=== PATIENT | female | born 1935 | race Caucasian/White ===

== ENCOUNTER 2018-04-26 14:55 | Emergency (ER) | payer MEDICARE, OTHER, SELFPAY ==
[2018-04-26 15:06] VITALS: BP 153/79; PULSE 90; RESP 20; TEMP 36.8; O2SAT 96; BMI 28.3
[2018-04-26 17:59] VITALS: BP 166/66; PULSE 73; RESP 18; O2SAT 98
[2018-04-26 18:10] VITALS: BP 124/67; PULSE 71; RESP 12; O2SAT 98
--- NOTE | 2018-04-26 18:37 | DI.RAD.S_ITS ---
PROCEDURE: XR LUMBAR SPINE 2-3V INDICATIONS: fall, back pain, Recent L1 compression TECHNIQUE: 3 views of the lumbar spine were acquired. COMPARISON: [facility], , L-SPINE 2-3 VIEWS, 10/14/2017, 14:52. FINDINGS: Bones: T12 compression fracture is again noted, with slight loss of height since 10/14/17. The remaining vertebral body heights appear preserved. Grade 1 anterolisthesis of L4 on L5. There is lower lumbar moderate disc degeneration at L4-L5 and L5-S1. There is lower lumbar spine diffuse facet arthropathy. Mild levocurvature centered at the L4 level. Partial left-sided sacralization of L5 and chronic pseudoarthrosis Soft tissues: Overlying bowel gas pattern is normal. No suspicious soft tissue calcifications. Scattered vascular calcifications present in the aorta IMPRESSION: Mild/moderate T12 compression fracture with slight loss of height since 10/14/17 however no more recent comparison studies. Therefore please correlate clinically. Dictated by: Alen Elizabeth M.D. on 04/26/2018 at 19:22 Approved by: Alen Elizabeth M.D. on 04/26/2018 at 19:24
--- NOTE | 2018-04-26 18:37 | DI.RAD.S_ITS ---
PROCEDURE: XR PELVIS 1-2V INDICATIONS: fall, Right lower back pain/sacral TECHNIQUE: Single view(s) of the pelvis acquired. COMPARISON: None. FINDINGS: Bones: No fractures or dislocations. No suspicious bony lesions. Lower lumbar spine degeneration. Mild bilateral hip joint degeneration. Soft tissues: Visualized bowel gas pattern is normal. No suspicious soft tissue calcifications. IMPRESSION: No fracture Dictated by: Alen Elizabeth M.D. on 04/26/2018 at 19:21 Approved by: Alen Elizabeth M.D. on 04/26/2018 at 19:22
[2018-04-26 19:56] VITALS: BP 130/74; PULSE 72; RESP 18; O2SAT 97
--- NOTE | 2018-04-27 03:24 | ED_ITS ---
HPI - Fall General Chief Complaint: Fall Stated Complaint: BACK PAIN FROM FALL LAST NIGHT Time Seen by Provider: 04/26/18 18:13 Source: patient and family Mode of arrival: ambulatory Limitations: no limitations History of Present Illness HPI Narrative: 82-year-old female presents with her daughter with a chief complaint of right buttock pain after mechanical fall yesterday in which she tripped and fell down. She and daughter a particular concern given x-ray results after a recent fall in which she suffered an L1 compression fracture. She denies any midline pain. She denies any head or neck pain. She denies any numbness, tingling or weakness. She has no trouble controlling bowel or bladder MD complaint: fall Onset (ago): minute(s) Fall from: standing Fall witnessed: no Place fall occurred: home Loss of consciousness: none Context: tripped/slipped Location of injury: back Related Data Home Medications Medication Instructions Recorded Confirmed CALCIUM CARBONATE (TUMS ) 500 mg PO PRN #0 07/01/12 aspirin 81 mg PO QDAY #0 11/21/17 Previous Rx's Medication Instructions Recorded donepezil 5 mg PO HS #90 tab 01/04/18 levothyroxine [Synthroid] 75 mcg PO QAM #90 tab 01/04/18 simvastatin 40 mg PO HS #90 tab 01/04/18 venlafaxine [Effexor XR] 150 mg PO QDAY #90 cap 01/04/18 Allergies Allergy/AdvReac Type Severity Reaction Status Date / Time pneumococcal vaccine Allergy Mild CELLULITIS Verified 04/26/18 15:13 Review of Systems Review of Systems All systems reviewed & are unremarkable except as noted in HPI and below Constitutional Denies chills, Denies fever(s), Denies lethargy and Denies weakness Eyes Denies change in vision, Denies eye discharge, Denies irritation and Denies loss of vision ENT Ears, Nose, Mouth, and Throat: Denies change in voice, Denies neck pain and Denies sore throat Cardiovascular Denies chest pain, Denies irregular heart rhythm, Denies lightheadedness, Denies palpitations, Denies dyspnea, Denies dyspnea on exertion and Denies orthopnea Respiratory Denies cough, Denies dyspnea, Denies dyspnea on exertion and Denies wheezing Gastrointestinal Gastrointestinal: Denies abdominal pain, Denies change in bowel habits, Denies diarrhea, Denies nausea and Denies vomiting Genitourinary Denies hematuria, Denies flank pain, Denies urinary incontinence and Denies urinary urgency Musculoskeletal Reports back pain, Reports limited range of motion and Denies neck pain Integumentary/Breasts Denies pruritus, Denies erythema, Denies rash and Denies wounds Neurologic Denies confusion, Denies loss of vision and Denies weakness Psychiatric Denies anxiety, Denies confusion, Denies depression, Denies homicidal ideation and Denies suicidal ideation Endocrine Denies palpitations Hematologic/Lymphatic Denies easy bruising Allergic/Immunologic Denies wheezing Exam Narrative Exam Narrative: GENERAL: pleasant 82-year-old female in mild distress. HEAD: Atraumatic. Normocephalic. No temporal or scalp tenderness. EYES: Pupils equal round and reactive. Extraocular motions intact. No scleral icterus. No injection or drainage. ENT: Nose without bleeding, purulent drainage or septal hematoma. Throat without erythema, tonsillar hypertrophy or exudate. Uvula midline. Airway patent. NECK: Trachea midline. No JVD or lymphadenopathy. Supple, nontender, no meningeal signs. CARDIOVASCULAR: Regular rate and rhythm without murmurs, gallops, or rubs. RESPIRATORY: Clear to auscultation. Breath sounds equal bilaterally. No wheezes , rales, or rhonchi. GASTROINTESTINAL: Abdomen soft, non-tender, nondistended. No hepato-splenomegaly , or palpable masses. No guarding. EXTREMITIES: No clubbing, cyanosis, or edema. No joint tenderness, effusion, or edema noted. BACK: mild tenderness in her right lumbar region and buttock. No midline tenderness NEURO: AOx3. SKIN: No rash or erythema. Initial Vital Signs Initial Vital Signs: Vital Signs Temperature 98.2 F 04/26/18 15:06 Pulse Rate 90 04/26/18 15:06 Respiratory Rate 20 04/26/18 15:06 Blood Pressure 153/79 H 04/26/18 15:06 Pulse Oximetry 96 04/26/18 15:06 [facility] Family History Sister Lung cancer, Onset Age: 85 Course Orders Ordered: ED Orders 04/26/18 18:37 XR lumbar spine 2-3V Stat XR pelvis 1-2V Stat Vital Signs - 8 hr 04/26/18 19:56 Pulse Rate 72 Respiratory Rate 18 Blood Pressure 130/74 H Pulse Oximetry 97 MDM - Fall Medical Records Attestation: I reviewed the patient's medical records. Imaging Data Lumbar Xray: Radiologist's impression: PROCEDURE: XR LUMBAR SPINE 2-3V INDICATIONS: fall, back pain, Recent L1 compression TECHNIQUE: 3 views of the lumbar spine were acquired. COMPARISON: [facility], , L-SPINE 2-3 VIEWS, 10/14/2017, 14:52. FINDINGS: Bones: T12 compression fracture is again noted, with slight loss of height since 10/14/17. The remaining vertebral body heights appear preserved. Grade 1 anterolisthesis of L4 on L5. There is lower lumbar moderate disc degeneration at L4-L5 and L5-S1. There is lower lumbar spine diffuse facet arthropathy. Mild levocurvature centered at the L4 level. Partial left-sided sacralization of L5 and chronic pseudoarthrosis Soft tissues: Overlying bowel gas pattern is normal. No suspicious soft tissue calcifications. Scattered vascular calcifications present in the aorta IMPRESSION: Mild/moderate T12 compression fracture with slight loss of height since 10/14/17 however no more recent comparison studies. Therefore please correlate clinically. Dictated by: Alen Elizabeth M.D. on 04/26/2018 at 19:22 Approved by: Alen Elizabeth M.D. on 04/26/2018 at 19:24 Xray Pelvis: My impression: PROCEDURE: XR PELVIS 1-2V INDICATIONS: fall, Right lower back pain/sacral TECHNIQUE: Single view(s) of the pelvis acquired. COMPARISON: None. FINDINGS: Bones: No fractures or dislocations. No suspicious bony lesions. Lower lumbar spine degeneration. Mild bilateral hip joint degeneration. Soft tissues: Visualized bowel gas pattern is normal. No suspicious soft tissue calcifications. IMPRESSION: No fracture Dictated by: Alen Elizabeth M.D. on 04/26/2018 at 19:21 Approved by: Alen Elizabeth M.D. on 04/26/2018 at 19:22 Discharge Plan Departure Patient Disposition: Home, Self-Care Clinical Impression: Right lumbar pain Discharge Date/Time: 04/26/18 19:57 Interventions: ED Discharge Assessment Last Done: 04/26/18 19:56 Instructions: DI for Low Back Pain Activity Restrictions/Additional Instructions: *You have been diagnosed with [ acute on chronic back pain ] *What to do: *continue to take medications as directed: tylenol or motrin for pain *Follow up with your primary care provider in 2-3 days, call for an appointment. Let them know you were seen in the Emergency Department and that we ask that you be seen in follow up *Return to ER if you should have any new, worsening or concerning symptoms , such as [ increasing pain, weakness, inability to urinate/have bowel movements or other concerns] Prescriptions: No Action CALCIUM CARBONATE (TUMS ) 500 mg PO PRN Qty: 0 RF: 0 aspirin 81 MG tablet,delayed release (DR/EC) 81 mg PO QDAY Qty: 0 RF: 0 donepezil 5 MG tablet 5 mg PO HS Qty: 90 RF: 3 venlafaxine [Effexor XR] 150 MG capsule,extended release 24hr 150 mg PO QDAY Qty: 90 RF: 3 simvastatin 40 MG tablet 40 mg PO HS Qty: 90 RF: 3 levothyroxine [Synthroid] 75 MCG tablet 75 mcg PO QAM Qty: 90 RF: 3 Referrals: Liberty Lopez PA-C [Primary Care Provider] -
== END 2018-04-26 19:57 | disposition home or self-care (01) ==
PROVIDERS: Emergency Provider Emergency Medicine; Family Provider Physician Assistant; PCP Physician Assistant
DX: M54.5 Low back pain (principal); W01.0XXA Fall on same level from slipping, tripping and stumbling without subsequent striking against object, initial encounter
CPT/HCPCS: 72100; 72170; 99283

== ENCOUNTER 2018-05-01 11:57 | Emergency (ER) | payer MEDICARE, OTHER, SELFPAY ==
[2018-05-01 12:10] VITALS: BP 138/68; PULSE 71; RESP 20; TEMP 36.6; O2SAT 95; BMI 31.2
--- NOTE | 2018-05-01 12:20 | ED.SYNCOPE ---
HPI - Syncope <JOJO Wilder - Last Filed: 05/01/18 22:26> General Chief Complaint: Syncope Stated Complaint: Near Syncope Time Seen by Provider: 05/01/18 12:04 History of Present Illness HPI narrative: 82-year-old female with history of dementia here for complaint of having pre syncopal episode this morning when waking up. Family states that she was feeling lightheaded when she woke up this morning and had a presyncopal episode where she almost fell. She denies any chest pain she denies any shortness of breath. No headache. She was given some fluids in route via ambulance states she feels better after receiving fluids. Family does state that she has been feeling hot over the past 24 hr due to the weather and may not have been drinking enough fluids. No discomfort. Positive p.o. intake no nausea vomiting. No diaphoresis. She denies any swelling of her lower extremities. Son states that she has a history of having urinary tract infections and has had symptoms symptoms like this in the past when she has had a urinary tract infection. MD complaint: felt faint Related Data Home Medications Medication Instructions Recorded Confirmed aspirin 81 mg PO QDAY #0 11/21/17 05/04/18 Previous Rx's Medication Instructions Recorded donepezil 5 mg PO HS #90 tab 01/04/18 levothyroxine [Synthroid] 75 mcg PO QAM #90 tab 01/04/18 simvastatin 40 mg PO HS #90 tab 01/04/18 venlafaxine [Effexor XR] 150 mg PO QDAY #90 cap 01/04/18 nitrofurantoin monohyd/m-cryst 100 mg PO BID #14 cap 05/01/18 [Macrobid] Allergies Allergy/AdvReac Type Severity Reaction Status Date / Time pneumococcal vaccine Allergy Mild CELLULITIS Verified 05/04/18 14:19 Review of Systems <JOJO Wilder - Last Filed: 05/01/18 22:26> Constitutional Denies chills, Denies fatigue, Denies fever(s), Denies lethargy and Denies weakness Eyes Denies change in vision, Denies eye discharge, Denies irritation and Denies loss of vision ENT Ears, Nose, Mouth, and Throat: Denies change in voice, Denies neck pain and Denies sore throat Cardiovascular Denies dyspnea and Denies dyspnea on exertion Comments: Feeling faint earlier today Respiratory Denies cough, Denies dyspnea, Denies dyspnea on exertion and Denies wheezing Gastrointestinal Gastrointestinal: Denies abdominal pain, Denies change in bowel habits, Denies diarrhea, Denies nausea and Denies vomiting Genitourinary Denies hematuria, Denies flank pain, Denies urinary incontinence and Denies urinary urgency Musculoskeletal Denies neck pain Integumentary/Breasts Denies pruritus, Denies erythema, Denies rash and Denies wounds Neurologic Denies confusion, Denies loss of vision and Denies weakness Psychiatric Denies anxiety, Denies confusion, Denies depression, Denies homicidal ideation and Denies suicidal ideation Endocrine Denies fatigue and Denies flushing Hematologic/Lymphatic Denies easy bruising Allergic/Immunologic Denies wheezing Exam <JOJO Wilder - Last Filed: 05/01/18 22:26> Initial Vital Signs Initial Vital Signs: Vital Signs Temperature 97.8 F 05/01/18 12:10 Pulse Rate 71 05/01/18 12:10 Respiratory Rate 20 05/01/18 12:10 Blood Pressure 138/68 H 05/01/18 12:10 Pulse Oximetry 95 05/01/18 12:10 Const General: cooperative and well developed Nutritional Appearance: well nourished Orientation: alert, awake, oriented x3 and not confused [facility] Head: normocephalic and atraumatic Nose: external nose normal and nasal discharge Face and sinus: sinus tenderness and dry mucous membranes Mouth: oral mucosae normal and moist mucous membranes Teeth and gingiva: dentition normal Throat: tonsils normal and uvula midline Eyes Conjunctivae: conjunctivae normal Sclera: sclerae normal Pupils: PERRL EOM: EOM intact bilaterally Resp Effort & Inspection: normal respiratory effort, able to speak in complete sentences, no respiratory distress and no use of accessory muscles Auscultation: clear to auscultation bilaterally, no rales, no rhonchi and no wheezes Cardio Rate: regular rate Rhythm: regular rhythm Heart Sounds: no click, no gallops, no murmurs and no rubs Pulses: normal peripheral pulses GI Inspection: non-distended Palpation: soft, no hepatosplenomegaly, No guarding, No pulsatile mass and No tender Auscultation: normal bowel sounds General: No CVA tenderness Skin General: no rashes or lesions noted, No jaundice and No petechiae Neuro General: alert, oriented x3, gait normal and no focal motor deficits Speech: speech normal Extrem General: full ROM, no clubbing, cyanosis or edema, no pedal edema and no calf tenderness <Leno Becerra MD - Last Filed: 05/15/18 08:13> Initial Vital Signs Initial Vital Signs: Vital Signs Temperature 97.8 F 05/01/18 12:10 Pulse Rate 71 05/01/18 12:10 Respiratory Rate 20 05/01/18 12:10 Blood Pressure 138/68 H 05/01/18 12:10 Pulse Oximetry 95 05/01/18 12:10 Scores <JOJO Wilder - Last Filed: 05/01/18 22:26> HEART Score Heart Score history: Slightly Suspicious Heart Score EKG: Normal Heart Score Age: > or = 65 years old Heart Score risk factors: 1-2 risk factors Heart Score troponin: < or = to normal limit Heart Score Total: 3 PERC Score Age greater than or equal to 50 years: Yes Heart rate greater than or equal to 100 bpm: No Room Air O2 Sat less than 95%: No Unilateral leg swelling: No Recent trauma or surgery: No Hemoptysis: No Prior PE or DVT: Yes Hormone Use: No Total PERC Score: 2 Course <JOJO Wilder - Last Filed: 05/01/18 22:26> Orders Ordered: Discontinued Medications Sodium Chloride (Normal Saline 0.9%) 1,000 mls @ 1,000 mls/hr IV BOLUS ONE Stop: 05/01/18 13:19 Last Infusion: 05/01/18 13:54 Dose: 0 mls/hr Admin: 05/01/18 12:41 Dose: 1,000 mls/hr Vital Signs - 8 hr 05/01/18 16:05 05/01/18 16:42 Temperature 98.6 F Pulse Rate 76 81 Respiratory Rate 17 20 Blood Pressure 160/58 H Blood Pressure [Left Arm] 160/58 H Pulse Oximetry 96 96 <Leno Becerra MD - Last Filed: 05/15/18 08:13> Orders Ordered: Discontinued Medications Sodium Chloride (Normal Saline 0.9%) 1,000 mls @ 1,000 mls/hr IV BOLUS ONE Stop: 05/01/18 13:19 Last Infusion: 05/01/18 13:54 Dose: 0 mls/hr Admin: 05/01/18 12:41 Dose: 1,000 mls/hr Vital Signs - 8 hr 05/01/18 16:05 05/01/18 16:42 Temperature 98.6 F Pulse Rate 76 81 Respiratory Rate 17 20 Blood Pressure 160/58 H Blood Pressure [Left Arm] 160/58 H Pulse Oximetry 96 96 MDM - Syncope <JOJO Wilder - Last Filed: 05/01/18 22:26> Differential Diagnosis Likely syncope due to orthostatic hypotension, vasovagal syncope and dehydration; Unlikely pulmonary embolism Lab Data Result diagrams: 05/01/18 12:40 05/01/18 12:40 Lab Results 05/01/18 05/01/18 05/01/18 Range/Units 12:40 12:40 14:30 WBC 8.6 (4.5-11.0) X10^3/uL RBC 4.05 (4.0-5.2) X10^6/uL Hgb 12.3 (12.0-16.0) g/dL Hct 36.4 (36-46) % MCV 89.8 (80-100) fL MCH 30.4 (26-34) PG MCHC 33.9 (30-36) % RDW 13.5 (11.6-14.8) % Plt Count 226 (150-400) X10^3/uL Neut % (Auto) 82.6 H (50-75) % Lymph % (Auto) 10.6 L (25-40) % [place] % (Auto) 4.7 (3-14) % Eos % (Auto) 1.5 L (2-4) % Baso % (Auto) 0.6 (0-2) % Neut # (Auto) 7100 H (8313-9620) /uL Sodium 142 (137-145) mmol/L Potassium 4.2 (3.4-5.1) mmol/L Chloride 108 H (98-107) mmol/L Carbon Dioxide 26 (22-32) mmol/L BUN 16 (7-17) mg/dL Creatinine 0.80 (0.52-1.04) mg/dL Estimated GFR > 60.0 (>60) mL/min BUN/Creatinine Ratio 20.0 (6-22) Glucose 108 (80-110) mg/dL Calcium 8.5 (8.4-10.2) mg/dL Total Bilirubin 0.5 (0.2-1.3) mg/dL AST 37 H (14-36) IU/L ALT 32 (9-52) IU/L Alkaline Phosphatase 74 (38-126) U/L Total Creatine Kinase 29 L (30-135) U/L Troponin I < 0.012 (0.01-0.034) ng/mL Total Protein 6.3 (6.3-8.2) g/dL Albumin 3.5 (3.5-5.0) g/dL Globulin 2.8 (1.7-4.1) g/dL Albumin/Globulin Ratio 1.3 (1.0-2.8) Urine RBC None seen (0-5/HPF) Urine WBC 10-30/hpf H (0-5/HPF) Urine Bacteria Many (>30) H (None) Ur Culture Indicated? Specimen cultured Micro UA Comment Not Reportable 05/01/18 Range/Units 14:54 WBC (4.5-11.0) X10^3/uL RBC (4.0-5.2) X10^6/uL Hgb (12.0-16.0) g/dL Hct (36-46) % MCV (80-100) fL MCH (26-34) PG MCHC (30-36) % RDW (11.6-14.8) % Plt Count (150-400) X10^3/uL Neut % (Auto) (50-75) % Lymph % (Auto) (25-40) % [place] % (Auto) (3-14) % Eos % (Auto) (2-4) % Baso % (Auto) (0-2) % Neut # (Auto) (2328-7178) /uL Sodium (137-145) mmol/L Potassium (3.4-5.1) mmol/L Chloride (98-107) mmol/L Carbon Dioxide (22-32) mmol/L BUN (7-17) mg/dL Creatinine (0.52-1.04) mg/dL Estimated GFR (>60) mL/min BUN/Creatinine Ratio (6-22) Glucose (80-110) mg/dL Calcium (8.4-10.2) mg/dL Total Bilirubin (0.2-1.3) mg/dL AST (14-36) IU/L ALT (9-52) IU/L Alkaline Phosphatase (38-126) U/L Total Creatine Kinase (30-135) U/L Troponin I < 0.012 (0.01-0.034) ng/mL Total Protein (6.3-8.2) g/dL Albumin (3.5-5.0) g/dL Globulin (1.7-4.1) g/dL Albumin/Globulin Ratio (1.0-2.8) Urine RBC (0-5/HPF) Urine WBC (0-5/HPF) Urine Bacteria (None) Ur Culture Indicated? Micro UA Comment Imaging Data Chest x-ray: Radiologist's impression: PROCEDURE: XR CHEST 1V INDICATIONS: presyncope TECHNIQUE: One view of the chest was acquired. COMPARISON: [facility], CT, PE STUDY (CTA CHEST), 01/20/2016, 18:21. [facility], CHEST 1 VIEW, 07/01/2012, 17:21. FINDINGS: Surgical changes and devices: None. Lungs and pleura: No pleural effusions or pneumothorax. Lungs are clear. Mediastinum: Mediastinal contours appear normal. Heart size is normal. Bones and chest wall: No suspicious bony lesions. Overlying soft tissues appear unremarkable. IMPRESSION: No acute pulmonary process. Dictated by: Kendra Jose M.D. on 05/01/2018 at 12:40 Approved by: Kendra Jose M.D. on 05/01/2018 at 12:40 CT scan - chest: Radiologist's impression: PROCEDURE: CT ANGIO CHEST PE PROTOCOL INDICATIONS: Syncope history of Pe TECHNIQUE: After the administration of intravenous contrast, 2 mm thick sections acquired from the pulmonary apices to the posterior costophrenic angles. 3-dimensional maximum intensity projection (MIP) coronal and sagittal reformats were then acquired through the thorax. For radiation dose reduction, the following was used: automated exposure control, adjustment of mA and/or kV according to patient size. COMPARISON: [facility], CT, PE STUDY (CTA CHEST), 01/20/2016, 18:21. [facility], , XR CHEST 1V, 05/01/2018, 12:31. FINDINGS: Image quality: Excellent. Pulmonary arteries: Pulmonary arteries are normal in size, and demonstrate no central intraluminal filling defects to suggest recurrent central pulmonary embolism. Lungs and pleura: Lungs are clear. No pleural effusions or pneumothorax. Central and peripheral airways are patent. Calcified granuloma in the base of the lingula is unchanged. 5 mm left lower lobe pulmonary nodule on previous exam is less apparent. 5 mm nodules in the lingula and right lower lobe on image 28. Mediastinum: Heart size is normal, without pericardial effusion. No mediastinal or hilar adenopathy. Thoracic aorta is normal in caliber and enhancement. Esophagus is slightly thickened in caliber distally, with a small hiatal hernia. Bones and chest wall: No suspicious bony lesions. Ribs and thoracic spine appear intact throughout. Thyroid gland appears normal. No axillary or supraclavicular adenopathy. Abdomen: Visualized upper abdominal solid organs appear normal in the early arterial phase of enhancement. IMPRESSION: 1. Exam is negative for recurrent pulmonary embolic disease. 2. Calcified granulomata. Stable bilateral pulmonary nodules such as in the anterior lingula and superior segment right lower lobe laterally. 3. Small hiatal hernia. Dictated by: Alphonso Bedolla M.D. on 05/01/2018 at 15:04 Approved by: Alphonso Bedolla M.D. on 05/01/2018 at 15:19 ECG Data Interpretation: EKG shows normal sinus rhythm with no ST elevation or depression. No ectopy. Ventricular rate is 64. Pr interval 171. QRS duration of 89. QTC of 422 MDM Narrative Medical decision making narrative: Chest x-ray was obtained was negative for any acute findings. Due to history of having a prior pulmonary embolus CT PE protocol was obtained was negative for PE. Cardiac enzymes were obtained and were negative for any acute findings. CBC and Chem panel were also obtained and were unremarkable. EKG shows sinus rhythm with no ST elevation or depression. Patient was given fluids and she felt better. Differential between dehydration and symptoms caused by urinary tract infection as UTI shows WBCs and also leuko esterase. Micro from November shows E coli that was pansensitive will treat with Macrobid. Plenty of fluids. Follow up with primary care provider in the next couple of days. Use [id number] Tylenol as needed for any discomfort. For any worsening symptoms return emergency room. <Leno Becerra MD - Last Filed: 05/15/18 08:13> Lab Data Lab Results 05/01/18 05/01/1818 Range/Units 12:40 12:40 14:30 WBC 8.6 (4.5-11.0) X10^3/uL RBC 4.05 (4.0-5.2) X10^6/uL Hgb 12.3 (12.0-16.0) g/dL Hct 36.4 (36-46) % MCV 89.8 (80-100) fL MCH 30.4 (26-34) PG MCHC 33.9 (30-36) % RDW 13.5 (11.6-14.8) % Plt Count 226 (150-400) X10^3/uL Neut % (Auto) 82.6 H (50-75) % Lymph % (Auto) 10.6 L (25-40) % [place] % (Auto) 4.7 (3-14) % Eos % (Auto) 1.5 L (2-4) % Baso % (Auto) 0.6 (0-2) % Neut # (Auto) 7100 H (9764-0218) /uL Sodium 142 (137-145) mmol/L Potassium 4.2 (3.4-5.1) mmol/L Chloride 108 H (98-107) mmol/L Carbon Dioxide 26 (22-32) mmol/L BUN 16 (7-17) mg/dL Creatinine 0.80 (0.52-1.04) mg/dL Estimated GFR > 60.0 (>60) mL/min BUN/Creatinine Ratio 20.0 (6-22) Glucose 108 (80-110) mg/dL Calcium 8.5 (8.4-10.2) mg/dL Total Bilirubin 0.5 (0.2-1.3) mg/dL AST 37 H (14-36) IU/L ALT 32 (9-52) IU/L Alkaline Phosphatase 74 (38-126) U/L Total Creatine Kinase 29 L (30-135) U/L Troponin I < 0.012 (0.01-0.034) ng/mL Total Protein 6.3 (6.3-8.2) g/dL Albumin 3.5 (3.5-5.0) g/dL Globulin 2.8 (1.7-4.1) g/dL Albumin/Globulin Ratio 1.3 (1.0-2.8) Urine RBC None seen (0-5/HPF) Urine WBC 10-30/hpf H (0-5/HPF) Urine Bacteria Many (>30) H (None) Ur Culture Indicated? Specimen cultured Micro UA Comment Not Reportable 05/01/18 Range/Units 14:54 WBC (4.5-11.0) X10^3/uL RBC (4.0-5.2) X10^6/uL Hgb (12.0-16.0) g/dL Hct (36-46) % MCV (80-100) fL MCH (26-34) PG MCHC (30-36) % RDW (11.6-14.8) % Plt Count (150-400) X10^3/uL Neut % (Auto) (50-75) % Lymph % (Auto) (25-40) % [place] % (Auto) (3-14) % Eos % (Auto) (2-4) % Baso % (Auto) (0-2) % Neut # (Auto) (2609-7991) /uL Sodium (137-145) mmol/L Potassium (3.4-5.1) mmol/L Chloride (98-107) mmol/L Carbon Dioxide (22-32) mmol/L BUN (7-17) mg/dL Creatinine (0.52-1.04) mg/dL Estimated GFR (>60) mL/min BUN/Creatinine Ratio (6-22) Glucose (80-110) mg/dL Calcium (8.4-10.2) mg/dL Total Bilirubin (0.2-1.3) mg/dL AST (14-36) IU/L ALT (9-52) IU/L Alkaline Phosphatase (38-126) U/L Total Creatine Kinase (30-135) U/L Troponin I < 0.012 (0.01-0.034) ng/mL Total Protein (6.3-8.2) g/dL Albumin (3.5-5.0) g/dL Globulin (1.7-4.1) g/dL Albumin/Globulin Ratio (1.0-2.8) Urine RBC (0-5/HPF) Urine WBC (0-5/HPF) Urine Bacteria (None) Ur Culture Indicated? Micro UA Comment Discharge Plan Departure Patient Disposition: Home, Self-Care Clinical Impression: Urinary tract infection Discharge Date/Time: 05/01/18 16:47 Interventions: ED Discharge Assessment Last Done: 05/01/18 16:42 Instructions: DI for Urinary Tract Infection (UTI) Activity Restrictions/Additional Instructions: Laboratory results were unremarkable with the exception of a urinary tract infection. Signs and symptoms can also be related to having non of fluids. Ensure plenty of fluids. Antibiotics have been prescribed for urinary tract infection use as directed. Follow up with your primary care provider in the next couple of days for re-evaluation. Use [id number] Tylenol as needed for any discomfort. For any worsening symptoms return to the emergency room. Prescriptions: New nitrofurantoin monohyd/m-cryst [Macrobid] 100 mg capsule 100 mg PO BID Qty: 14 RF: 0 No Action aspirin 81 MG tablet,delayed release (DR/EC) 81 mg PO QDAY Qty: 0 RF: 0 donepezil 5 MG tablet 5 mg PO HS Qty: 90 RF: 3 venlafaxine [Effexor XR] 150 MG capsule,extended release 24hr 150 mg PO QDAY Qty: 90 RF: 3 simvastatin 40 MG tablet 40 mg PO HS Qty: 90 RF: 3 levothyroxine [Synthroid] 75 MCG tablet 75 mcg PO QAM Qty: 90 RF: 3 Referrals: Liberty Lopez PA-C [Primary Care Provider] - <Leno Becerra MD - Last Filed: 05/15/18 08:13> Sign Out Provider Sign Out Attestation: The PA/ACCOUNTS RECEIVABLE COLLECTOR functioned independently for the care of this pt, I was available, but not asked to participate in care. I am unable to determine appropriateness of management without personally examining the pt.
[2018-05-01] MEDS: SODIUM CHLORIDE 0.9% 1,000 ML 1000 ML IV (12:41)
--- NOTE | 2018-05-01 12:45 | ED_ITS ---
HPI - Syncope <JOJO Wilder - Last Filed: 05/01/18 22:26> General Chief Complaint: Syncope Stated Complaint: Near Syncope Time Seen by Provider: 05/01/18 12:04 History of Present Illness HPI narrative: 82-year-old female with history of dementia here for complaint of having pre syncopal episode this morning when waking up. Family states that she was feeling lightheaded when she woke up this morning and had a presyncopal episode where she almost fell. She denies any chest pain she denies any shortness of breath. No headache. She was given some fluids in route via ambulance states she feels better after receiving fluids. Family does state that she has been feeling hot over the past 24 hr due to the weather and may not have been drinking enough fluids. No discomfort. Positive p.o. intake no nausea vomiting. No diaphoresis. She denies any swelling of her lower extremities. Son states that she has a history of having urinary tract infections and has had symptoms symptoms like this in the past when she has had a urinary tract infection. MD complaint: felt faint Related Data Home Medications Medication Instructions Recorded Confirmed aspirin 81 mg PO QDAY #0 11/21/17 05/04/18 Previous Rx's Medication Instructions Recorded donepezil 5 mg PO HS #90 tab 01/04/18 levothyroxine [Synthroid] 75 mcg PO QAM #90 tab 01/04/18 simvastatin 40 mg PO HS #90 tab 01/04/18 venlafaxine [Effexor XR] 150 mg PO QDAY #90 cap 01/04/18 nitrofurantoin monohyd/m-cryst 100 mg PO BID #14 cap 05/01/18 [Macrobid] Allergies Allergy/AdvReac Type Severity Reaction Status Date / Time pneumococcal vaccine Allergy Mild CELLULITIS Verified 05/04/18 14:19 Review of Systems <JOJO Wilder - Last Filed: 05/01/18 22:26> Constitutional Denies chills, Denies fatigue, Denies fever(s), Denies lethargy and Denies weakness Eyes Denies change in vision, Denies eye discharge, Denies irritation and Denies loss of vision ENT Ears, Nose, Mouth, and Throat: Denies change in voice, Denies neck pain and Denies sore throat Cardiovascular Denies dyspnea and Denies dyspnea on exertion Comments: Feeling faint earlier today Respiratory Denies cough, Denies dyspnea, Denies dyspnea on exertion and Denies wheezing Gastrointestinal Gastrointestinal: Denies abdominal pain, Denies change in bowel habits, Denies diarrhea, Denies nausea and Denies vomiting Genitourinary Denies hematuria, Denies flank pain, Denies urinary incontinence and Denies urinary urgency Musculoskeletal Denies neck pain Integumentary/Breasts Denies pruritus, Denies erythema, Denies rash and Denies wounds Neurologic Denies confusion, Denies loss of vision and Denies weakness Psychiatric Denies anxiety, Denies confusion, Denies depression, Denies homicidal ideation and Denies suicidal ideation Endocrine Denies fatigue and Denies flushing Hematologic/Lymphatic Denies easy bruising Allergic/Immunologic Denies wheezing Exam <JOJO Wilder - Last Filed: 05/01/18 22:26> Initial Vital Signs Initial Vital Signs: Vital Signs Temperature 97.8 F 05/01/18 12:10 Pulse Rate 71 05/01/18 12:10 Respiratory Rate 20 05/01/18 12:10 Blood Pressure 138/68 H 05/01/18 12:10 Pulse Oximetry 95 05/01/18 12:10 Const General: cooperative and well developed Nutritional Appearance: well nourished Orientation: alert, awake, oriented x3 and not confused [facility] Head: normocephalic and atraumatic Nose: external nose normal and nasal discharge Face and sinus: sinus tenderness and dry mucous membranes Mouth: oral mucosae normal and moist mucous membranes Teeth and gingiva: dentition normal Throat: tonsils normal and uvula midline Eyes Conjunctivae: conjunctivae normal Sclera: sclerae normal Pupils: PERRL EOM: EOM intact bilaterally Resp Effort & Inspection: normal respiratory effort, able to speak in complete sentences, no respiratory distress and no use of accessory muscles Auscultation: clear to auscultation bilaterally, no rales, no rhonchi and no wheezes Cardio Rate: regular rate Rhythm: regular rhythm Heart Sounds: no click, no gallops, no murmurs and no rubs Pulses: normal peripheral pulses GI Inspection: non-distended Palpation: soft, no hepatosplenomegaly, No guarding, No pulsatile mass and No tender Auscultation: normal bowel sounds General: No CVA tenderness Skin General: no rashes or lesions noted, No jaundice and No petechiae Neuro General: alert, oriented x3, gait normal and no focal motor deficits Speech: speech normal Extrem General: full ROM, no clubbing, cyanosis or edema, no pedal edema and no calf tenderness <Leno Becerra MD - Last Filed: 05/15/18 08:13> Initial Vital Signs Initial Vital Signs: Vital Signs Temperature 97.8 F 05/01/18 12:10 Pulse Rate 71 05/01/18 12:10 Respiratory Rate 20 05/01/18 12:10 Blood Pressure 138/68 H 05/01/18 12:10 Pulse Oximetry 95 05/01/18 12:10 Scores <JOJO Wilder - Last Filed: 05/01/18 22:26> HEART Score Heart Score history: Slightly Suspicious Heart Score EKG: Normal Heart Score Age: > or = 65 years old Heart Score risk factors: 1-2 risk factors Heart Score troponin: < or = to normal limit Heart Score Total: 3 PERC Score Age greater than or equal to 50 years: Yes Heart rate greater than or equal to 100 bpm: No Room Air O2 Sat less than 95%: No Unilateral leg swelling: No Recent trauma or surgery: No Hemoptysis: No Prior PE or DVT: Yes Hormone Use: No Total PERC Score: 2 Course <JOJO Wilder - Last Filed: 05/01/18 22:26> Orders Ordered: Discontinued Medications Sodium Chloride (Normal Saline 0.9%) 1,000 mls @ 1,000 mls/hr IV BOLUS ONE Stop: 05/01/18 13:19 Last Infusion: 05/01/18 13:54 Dose: 0 mls/hr Admin: 05/01/18 12:41 Dose: 1,000 mls/hr Vital Signs - 8 hr 05/01/18 16:05 05/01/18 16:42 Temperature 98.6 F Pulse Rate 76 81 Respiratory Rate 17 20 Blood Pressure 160/58 H Blood Pressure [Left Arm] 160/58 H Pulse Oximetry 96 96 <Leno Becerra MD - Last Filed: 05/15/18 08:13> Orders Ordered: Discontinued Medications Sodium Chloride (Normal Saline 0.9%) 1,000 mls @ 1,000 mls/hr IV BOLUS ONE Stop: 05/01/18 13:19 Last Infusion: 05/01/18 13:54 Dose: 0 mls/hr Admin: 05/01/18 12:41 Dose: 1,000 mls/hr Vital Signs - 8 hr 05/01/18 16:05 05/01/18 16:42 Temperature 98.6 F Pulse Rate 76 81 Respiratory Rate 17 20 Blood Pressure 160/58 H Blood Pressure [Left Arm] 160/58 H Pulse Oximetry 96 96 MDM - Syncope <JOJO Wilder - Last Filed: 05/01/18 22:26> Differential Diagnosis Likely syncope due to orthostatic hypotension, vasovagal syncope and dehydration ; Unlikely pulmonary embolism Lab Data Result diagrams: 05/01/18 12:40 05/01/18 12:40 Lab Results 05/01/18 05/01/18 05/01/18 Range/Units 12:40 12:40 14:30 WBC 8.6 (4.5-11.0) X10^3/uL RBC 4.05 (4.0-5.2) X10^6/uL Hgb 12.3 (12.0-16.0) g/dL Hct 36.4 (36-46) % MCV 89.8 (80-100) fL MCH 30.4 (26-34) PG MCHC 33.9 (30-36) % RDW 13.5 (11.6-14.8) % Plt Count 226 (150-400) X10^3/uL Neut % (Auto) 82.6 H (50-75) % Lymph % (Auto) 10.6 L (25-40) % [place] % (Auto) 4.7 (3-14) % Eos % (Auto) 1.5 L (2-4) % Baso % (Auto) 0.6 (0-2) % Neut # (Auto) 7100 H (4784-6705) /uL Sodium 142 (137-145) mmol/L Potassium 4.2 (3.4-5.1) mmol/L Chloride 108 H (98-107) mmol/L Carbon Dioxide 26 (22-32) mmol/L BUN 16 (7-17) mg/dL Creatinine 0.80 (0.52-1.04) mg/dL Estimated GFR > 60.0 (>60) mL/min BUN/Creatinine Ratio 20.0 (6-22) Glucose 108 (80-110) mg/dL Calcium 8.5 (8.4-10.2) mg/dL Total Bilirubin 0.5 (0.2-1.3) mg/dL AST 37 H (14-36) IU/L ALT 32 (9-52) IU/L Alkaline Phosphatase 74 (38-126) U/L Total Creatine Kinase 29 L (30-135) U/L Troponin I < 0.012 (0.01-0.034) ng/mL Total Protein 6.3 (6.3-8.2) g/dL Albumin 3.5 (3.5-5.0) g/dL Globulin 2.8 (1.7-4.1) g/dL Albumin/Globulin Ratio 1.3 (1.0-2.8) Urine RBC None seen (0-5/HPF) Urine WBC 10-30/hpf H (0-5/HPF) Urine Bacteria Many (>30) H (None) Ur Culture Indicated? Specimen cultured Micro UA Comment Not Reportable 05/01/18 Range/Units 14:54 WBC (4.5-11.0) X10^3/uL RBC (4.0-5.2) X10^6/uL Hgb (12.0-16.0) g/dL Hct (36-46) % MCV (80-100) fL MCH (26-34) PG MCHC (30-36) % RDW (11.6-14.8) % Plt Count (150-400) X10^3/uL Neut % (Auto) (50-75) % Lymph % (Auto) (25-40) % [place] % (Auto) (3-14) % Eos % (Auto) (2-4) % Baso % (Auto) (0-2) % Neut # (Auto) (8384-1495) /uL Sodium (137-145) mmol/L Potassium (3.4-5.1) mmol/L Chloride (98-107) mmol/L Carbon Dioxide (22-32) mmol/L BUN (7-17) mg/dL Creatinine (0.52-1.04) mg/dL Estimated GFR (>60) mL/min BUN/Creatinine Ratio (6-22) Glucose (80-110) mg/dL Calcium (8.4-10.2) mg/dL Total Bilirubin (0.2-1.3) mg/dL AST (14-36) IU/L ALT (9-52) IU/L Alkaline Phosphatase (38-126) U/L Total Creatine Kinase (30-135) U/L Troponin I < 0.012 (0.01-0.034) ng/mL Total Protein (6.3-8.2) g/dL Albumin (3.5-5.0) g/dL Globulin (1.7-4.1) g/dL Albumin/Globulin Ratio (1.0-2.8) Urine RBC (0-5/HPF) Urine WBC (0-5/HPF) Urine Bacteria (None) Ur Culture Indicated? Micro UA Comment Imaging Data Chest x-ray: Radiologist's impression: PROCEDURE: XR CHEST 1V INDICATIONS: presyncope TECHNIQUE: One view of the chest was acquired. COMPARISON: [facility], CT, PE STUDY (CTA CHEST), 01/20/2016, 18:21. [facility], CHEST 1 VIEW, 07/01/2012, 17:21. FINDINGS: Surgical changes and devices: None. Lungs and pleura: No pleural effusions or pneumothorax. Lungs are clear. Mediastinum: Mediastinal contours appear normal. Heart size is normal. Bones and chest wall: No suspicious bony lesions. Overlying soft tissues appear unremarkable. IMPRESSION: No acute pulmonary process. Dictated by: Kendra Jose M.D. on 05/01/2018 at 12:40 Approved by: Kendra Jose M.D. on 05/01/2018 at 12:40 CT scan - chest: Radiologist's impression: PROCEDURE: CT ANGIO CHEST PE PROTOCOL INDICATIONS: Syncope history of Pe TECHNIQUE: After the administration of intravenous contrast, 2 mm thick sections acquired from the pulmonary apices to the posterior costophrenic angles. 3-dimensional maximum intensity projection (MIP) coronal and sagittal reformats were then acquired through the thorax. For radiation dose reduction, the following was used: automated exposure control, adjustment of mA and/or kV according to patient size. COMPARISON: [facility], CT, PE STUDY (CTA CHEST), 01/20/2016, 18:21. [facility], , XR CHEST 1V, 05/01/2018, 12:31. FINDINGS: Image quality: Excellent. Pulmonary arteries: Pulmonary arteries are normal in size, and demonstrate no central intraluminal filling defects to suggest recurrent central pulmonary embolism. Lungs and pleura: Lungs are clear. No pleural effusions or pneumothorax. Central and peripheral airways are patent. Calcified granuloma in the base of the lingula is unchanged. 5 mm left lower lobe pulmonary nodule on previous exam is less apparent. 5 mm nodules in the lingula and right lower lobe on image 28. Mediastinum: Heart size is normal, without pericardial effusion. No mediastinal or hilar adenopathy. Thoracic aorta is normal in caliber and enhancement. Esophagus is slightly thickened in caliber distally, with a small hiatal hernia. Bones and chest wall: No suspicious bony lesions. Ribs and thoracic spine appear intact throughout. Thyroid gland appears normal. No axillary or supraclavicular adenopathy. Abdomen: Visualized upper abdominal solid organs appear normal in the early arterial phase of enhancement. IMPRESSION: 1. Exam is negative for recurrent pulmonary embolic disease. 2. Calcified granulomata. Stable bilateral pulmonary nodules such as in the anterior lingula and superior segment right lower lobe laterally. 3. Small hiatal hernia. Dictated by: Alphonso Bedolla M.D. on 05/01/2018 at 15:04 Approved by: Alphonso Bedolla M.D. on 05/01/2018 at 15:19 ECG Data Interpretation: EKG shows normal sinus rhythm with no ST elevation or depression. No ectopy. Ventricular rate is 64. Pr interval 171. QRS duration of 89. QTC of 422 MDM Narrative Medical decision making narrative: Chest x-ray was obtained was negative for any acute findings. Due to history of having a prior pulmonary embolus CT PE protocol was obtained was negative for PE. Cardiac enzymes were obtained and were negative for any acute findings. CBC and Chem panel were also obtained and were unremarkable. EKG shows sinus rhythm with no ST elevation or depression. Patient was given fluids and she felt better. Differential between dehydration and symptoms caused by urinary tract infection as UTI shows WBCs and also leuko esterase. Micro from November shows E coli that was pansensitive will treat with Macrobid. Plenty of fluids. Follow up with primary care provider in the next couple of days. Use [id number] Tylenol as needed for any discomfort. For any worsening symptoms return emergency room. <Leno Becerra MD - Last Filed: 05/15/18 08:13> Lab Data Lab Results 05/01/18 05/01/1818 Range/Units 12:40 12:40 14:30 WBC 8.6 (4.5-11.0) X10^3/uL RBC 4.05 (4.0-5.2) X10^6/uL Hgb 12.3 (12.0-16.0) g/dL Hct 36.4 (36-46) % MCV 89.8 (80-100) fL MCH 30.4 (26-34) PG MCHC 33.9 (30-36) % RDW 13.5 (11.6-14.8) % Plt Count 226 (150-400) X10^3/uL Neut % (Auto) 82.6 H (50-75) % Lymph % (Auto) 10.6 L (25-40) % [place] % (Auto) 4.7 (3-14) % Eos % (Auto) 1.5 L (2-4) % Baso % (Auto) 0.6 (0-2) % Neut # (Auto) 7100 H (8861-5223) /uL Sodium 142 (137-145) mmol/L Potassium 4.2 (3.4-5.1) mmol/L Chloride 108 H (98-107) mmol/L Carbon Dioxide 26 (22-32) mmol/L BUN 16 (7-17) mg/dL Creatinine 0.80 (0.52-1.04) mg/dL Estimated GFR > 60.0 (>60) mL/min BUN/Creatinine Ratio 20.0 (6-22) Glucose 108 (80-110) mg/dL Calcium 8.5 (8.4-10.2) mg/dL Total Bilirubin 0.5 (0.2-1.3) mg/dL AST 37 H (14-36) IU/L ALT 32 (9-52) IU/L Alkaline Phosphatase 74 (38-126) U/L Total Creatine Kinase 29 L (30-135) U/L Troponin I < 0.012 (0.01-0.034) ng/mL Total Protein 6.3 (6.3-8.2) g/dL Albumin 3.5 (3.5-5.0) g/dL Globulin 2.8 (1.7-4.1) g/dL Albumin/Globulin Ratio 1.3 (1.0-2.8) Urine RBC None seen (0-5/HPF) Urine WBC 10-30/hpf H (0-5/HPF) Urine Bacteria Many (>30) H (None) Ur Culture Indicated? Specimen cultured Micro UA Comment Not Reportable 05/01/18 Range/Units 14:54 WBC (4.5-11.0) X10^3/uL RBC (4.0-5.2) X10^6/uL Hgb (12.0-16.0) g/dL Hct (36-46) % MCV (80-100) fL MCH (26-34) PG MCHC (30-36) % RDW (11.6-14.8) % Plt Count (150-400) X10^3/uL Neut % (Auto) (50-75) % Lymph % (Auto) (25-40) % [place] % (Auto) (3-14) % Eos % (Auto) (2-4) % Baso % (Auto) (0-2) % Neut # (Auto) (5366-7248) /uL Sodium (137-145) mmol/L Potassium (3.4-5.1) mmol/L Chloride (98-107) mmol/L Carbon Dioxide (22-32) mmol/L BUN (7-17) mg/dL Creatinine (0.52-1.04) mg/dL Estimated GFR (>60) mL/min BUN/Creatinine Ratio (6-22) Glucose (80-110) mg/dL Calcium (8.4-10.2) mg/dL Total Bilirubin (0.2-1.3) mg/dL AST (14-36) IU/L ALT (9-52) IU/L Alkaline Phosphatase (38-126) U/L Total Creatine Kinase (30-135) U/L Troponin I < 0.012 (0.01-0.034) ng/mL Total Protein (6.3-8.2) g/dL Albumin (3.5-5.0) g/dL Globulin (1.7-4.1) g/dL Albumin/Globulin Ratio (1.0-2.8) Urine RBC (0-5/HPF) Urine WBC (0-5/HPF) Urine Bacteria (None) Ur Culture Indicated? Micro UA Comment Discharge Plan Departure Patient Disposition: Home, Self-Care Clinical Impression: Urinary tract infection Discharge Date/Time: 05/01/18 16:47 Interventions: ED Discharge Assessment Last Done: 05/01/18 16:42 Instructions: DI for Urinary Tract Infection (UTI) Activity Restrictions/Additional Instructions: Laboratory results were unremarkable with the exception of a urinary tract infection. Signs and symptoms can also be related to having non of fluids. Ensure plenty of fluids. Antibiotics have been prescribed for urinary tract infection use as directed. Follow up with your primary care provider in the next couple of days for re-evaluation. Use [id number] Tylenol as needed for any discomfort. For any worsening symptoms return to the emergency room. Prescriptions: New nitrofurantoin monohyd/m-cryst [Macrobid] 100 mg capsule 100 mg PO BID Qty: 14 RF: 0 No Action aspirin 81 MG tablet,delayed release (DR/EC) 81 mg PO QDAY Qty: 0 RF: 0 donepezil 5 MG tablet 5 mg PO HS Qty: 90 RF: 3 venlafaxine [Effexor XR] 150 MG capsule,extended release 24hr 150 mg PO QDAY Qty: 90 RF: 3 simvastatin 40 MG tablet 40 mg PO HS Qty: 90 RF: 3 levothyroxine [Synthroid] 75 MCG tablet 75 mcg PO QAM Qty: 90 RF: 3 Referrals: Liberty Lopez PA-C [Primary Care Provider] - <Leno Becerra MD - Last Filed: 05/15/18 08:13> Sign Out Provider Sign Out Attestation: The PA/ASSEMBLER FITTER functioned independently for the care of this pt, I was available, but not asked to participate in care. I am unable to determine appropriateness of management without personally examining the pt.
[2018-05-01 13:13] VITALS: BP 160/70; PULSE 65; RESP 16
[2018-05-01 13:17] LABS: Add Manual Diff / Slide Review NO; Basophils Percent Auto 0.6 % (0-2); Eosinophils Percent Auto 1.5 % (2-4); Hematocrit 36.4 % (36-46); Hemoglobin 12.3 g/dL (12.0-16.0); Lymphocytes Percent Auto 10.6 % (25-40); Mean Corpuscular HGB Conc 33.9 % (30-36); Mean Corpuscular Hemoglobin 30.4 PG (26-34); Mean Corpuscular Volume 89.8 fL (80-100); Monocytes Percent Auto 4.7 % (3-14); Neutrophils Absolute Auto 7100 /uL (3000-5900); Neutrophils Percent Auto 82.6 % (50-75); Platelet Count 226 X10^3/uL (150-400); Red Blood Cell Count 4.05 X10^6/uL (4.0-5.2); Red Cell Distribution Width 13.5 % (11.6-14.8); White Blood Cell Count 8.6 X10^3/uL (4.5-11.0)
--- NOTE | 2018-05-01 13:24 | DI.CT.S_ITS ---
PROCEDURE: CT ANGIO CHEST PE PROTOCOL INDICATIONS: Syncope history of Pe TECHNIQUE: After the administration of intravenous contrast, 2 mm thick sections acquired from the pulmonary apices to the posterior costophrenic angles. 3-dimensional maximum intensity projection (MIP) coronal and sagittal reformats were then acquired through the thorax. For radiation dose reduction, the following was used: automated exposure control, adjustment of mA and/or kV according to patient size. COMPARISON: [facility], CT, PE STUDY (CTA CHEST), 01/20/2016, 18:21. [facility], CR, XR CHEST 1V, 05/01/2018, 12:31. FINDINGS: Image quality: Excellent. Pulmonary arteries: Pulmonary arteries are normal in size, and demonstrate no central intraluminal filling defects to suggest recurrent central pulmonary embolism. Lungs and pleura: Lungs are clear. No pleural effusions or pneumothorax. Central and peripheral airways are patent. Calcified granuloma in the base of the lingula is unchanged. 5 mm left lower lobe pulmonary nodule on previous exam is less apparent. 5 mm nodules in the lingula and right lower lobe on image 28. Mediastinum: Heart size is normal, without pericardial effusion. No mediastinal or hilar adenopathy. Thoracic aorta is normal in caliber and enhancement. Esophagus is slightly thickened in caliber distally, with a small hiatal hernia. Bones and chest wall: No suspicious bony lesions. Ribs and thoracic spine appear intact throughout. Thyroid gland appears normal. No axillary or supraclavicular adenopathy. Abdomen: Visualized upper abdominal solid organs appear normal in the early arterial phase of enhancement. IMPRESSION: 1. Exam is negative for recurrent pulmonary embolic disease. 2. Calcified granulomata. Stable bilateral pulmonary nodules such as in the anterior lingula and superior segment right lower lobe laterally. 3. Small hiatal hernia. Dictated by: Alphonso Bedolla M.D. on 05/01/2018 at 15:04 Approved by: Alphonso Bedolla M.D. on 05/01/2018 at 15:19
[2018-05-01 13:25] LABS: Alanine Aminotransferase 32 IU/L (9-52); Albumin 3.5 g/dL (3.5-5.0); Albumin Globulin Ratio 1.3 (1.0-2.8); Alkaline Phosphatase 74 U/L (38-126); Aspartate Aminotransferase 37 IU/L (14-36); Bilirubin Total 0.5 mg/dL (0.2-1.3); Blood Urea Nitrogen 16 mg/dL (7-17); Calcium 8.5 mg/dL (8.4-10.2); Carbon Dioxide 26 mmol/L (22-32); Chloride 108 mmol/L (98-107); Creatine Kinase 29 U/L (30-135); Estimated Glomerular Filt Rate > 60.0 mL/min (>60); Globulin 2.8 g/dL (1.7-4.1); Glucose 108 mg/dL (80-110); HEMOLYSIS < 15 (0-50); Potassium 4.2 mmol/L (3.4-5.1); Sodium 142 mmol/L (137-145); Total Protein 6.3 g/dL (6.3-8.2)
[2018-05-01 13:45] LABS: Troponin I < 0.012 ng/mL (0.01-0.034)
[2018-05-01 14:00] VITALS: BP 154/60; PULSE 72; RESP 17; O2SAT 97
[2018-05-01 14:46] LABS: RBC Urine None Seen (0-5/HPF)
[2018-05-01 15:02] LABS: Bacteria Urine Many (>30); Culture Indicated Urine Specimen Cultured; WBC Urine 10-30/HPF (0-5/HPF)
[2018-05-01 15:48] LABS: Troponin I < 0.012 ng/mL (0.01-0.034)
[2018-05-01 16:05] VITALS: BP 160/58; PULSE 76; RESP 17; O2SAT 96
[2018-05-01 16:42] VITALS: BP 160/58; PULSE 81; RESP 20; TEMP 37; O2SAT 96
== END 2018-05-01 16:47 | disposition home or self-care (01) ==
PROVIDERS: Emergency Provider Nurse Practitioner Family; Family Provider Physician Assistant; PCP Physician Assistant
DX: N39.0 Urinary tract infection, site not specified (principal)
CPT/HCPCS: 36415; 71045; 71275; 80053; 81003; 81015; 82550; 82553; 84484; 85025; 87077; 87086; 87186; 93005; 96360; 99283; 99284; 99285; Q9967

== ENCOUNTER → 2018-06-07 15:13 | Outpatient (CLI) | payer MEDICARE, OTHER, SELFPAY | PROVIDERS: Family Provider Physician Assistant; PCP Physician Assistant; Visit Provider Physician Assistant | DX: N39.0 Urinary tract infection, site not specified (principal) | CPT/HCPCS: 87077; 87086; 87186 ==

== ENCOUNTER 2018-07-22 12:23 | Emergency (ER) | payer MEDICARE, OTHER, SELFPAY ==
--- NOTE | 2018-07-22 12:26 | DI.CT.S_ITS ---
PROCEDURE: CT HEAD/BRAIN WO CON INDICATIONS: Acute mental status change TECHNIQUE: Noncontrast 4.5 mm thick angled axial sections acquired from the foramen magnum to the vertex, with coronal and sagittal reformats. For radiation dose reduction, the following was used: automated exposure control, adjustment of mA and/or kV according to patient size. COMPARISON: [facility], CT, HEAD WITHOUT CONTRAST, 10/14/2017, 15:12. FINDINGS: Image quality: Excellent. CSF spaces: Basal cisterns are patent. No extra-axial fluid collections. Diffuse prominence of the ventricular system out of proportion to the prominence of the sulci which could be due to central volume loss versus normal pressure hydrocephalus. Brain: No intracranial bleeds or masses. There is cerebral volume loss for age, with resultant ventricular and sulcal prominence. There are periventricular and deep white matter chronic small vessel ischemic changes. There is intracranial internal carotid artery atherosclerosis. Skull and face: Calvarium and visualized facial bones appear intact, without suspicious lesions. Sinuses: Visualized sinuses and mastoids are clear. IMPRESSION: 1. No acute intracranial disease process. 2. Ventriculomegaly which could be due to central volume loss versus normal pressure hydrocephalus. Please correlate with clinical findings. 3. Moderate, diffuse removal and was. 4. Moderate periventricular and subcortical white matter chronic microvascular ischemic changes. Dictated by: Torri Doss MD, PhD on 07/22/2018 at 13:24 Approved by: Torri Doss MD, PhD on 07/22/2018 at 13:27
--- NOTE | 2018-07-22 12:26 | DI.RAD.S_ITS ---
PROCEDURE: XR CHEST 1V INDICATIONS: near syncope TECHNIQUE: One view of the chest was acquired. COMPARISON: None. FINDINGS: Surgical changes and devices: None. Lungs and pleura: No pleural effusions or pneumothorax. Lungs are clear. Mediastinum: Mediastinal contours appear normal. Heart size is normal. Bones and chest wall: No suspicious bony lesions. Overlying soft tissues appear unremarkable. IMPRESSION: No acute cardiopulmonary disease process. Dictated by: Torri Doss MD, PhD on 07/22/2018 at 13:27 Approved by: Torri Doss MD, PhD on 07/22/2018 at 13:27
[2018-07-22 12:28] VITALS: BP 131/49; PULSE 78; RESP 19; TEMP 36.5; O2SAT 95; BMI 28.4
[2018-07-22 12:35] VITALS: BP 131/39; PULSE 76; RESP 20; TEMP 36.8; O2SAT 97
[2018-07-22 12:54] LABS: Add Manual Diff / Slide Review NO; Basophils Percent Auto 0.7 % (0-2); Eosinophils Percent Auto 1.4 % (2-4); Hematocrit 40.5 % (36-46); Hemoglobin 13.3 g/dL (12.0-16.0); Lymphocytes Percent Auto 15.5 % (25-40); Mean Corpuscular HGB Conc 32.9 % (30-36); Mean Corpuscular Hemoglobin 29.8 PG (26-34); Mean Corpuscular Volume 90.5 fL (80-100); Monocytes Percent Auto 5.9 % (3-14); Neutrophils Absolute Auto 5900 /uL (3000-5900); Neutrophils Percent Auto 76.5 % (50-75); Platelet Count 252 X10^3/uL (150-400); Red Blood Cell Count 4.48 X10^6/uL (4.0-5.2); Red Cell Distribution Width 13.5 % (11.6-14.8); White Blood Cell Count 7.7 X10^3/uL (4.5-11.0)
[2018-07-22 13:01] LABS: Alanine Aminotransferase 25 IU/L (9-52); Albumin 3.9 g/dL (3.5-5.0); Albumin Globulin Ratio 1.4 (1.0-2.8); Alkaline Phosphatase 64 U/L (38-126); Aspartate Aminotransferase 17 IU/L (14-36); Bilirubin Total 0.5 mg/dL (0.2-1.3); Blood Urea Nitrogen 21 mg/dL (7-17); Calcium 8.7 mg/dL (8.4-10.2); Carbon Dioxide 27 mmol/L (22-32); Chloride 107 mmol/L (98-107); Creatine Kinase 22 U/L (30-135); Estimated Glomerular Filt Rate 53.1 mL/min (>60); Globulin 2.7 g/dL (1.7-4.1); Glucose 117 mg/dL (80-110); HEMOLYSIS < 15 (0-50); Lipase 158 U/L (23-300); Potassium 4.1 mmol/L (3.4-5.1); Sodium 145 mmol/L (137-145); Total Protein 6.6 g/dL (6.3-8.2)
[2018-07-22 13:08] LABS: B Type Natriuretic Peptide < 100.0 (<100)
[2018-07-22] MEDS: SODIUM CHLORIDE 0.9% 1,000 ML 150 ML IV (13:11)
[2018-07-22 13:20] LABS: Troponin I < 0.012 ng/mL (0.01-0.034)
[2018-07-22 13:30] VITALS: BP 148/56; PULSE 69; RESP 13; O2SAT 99
--- NOTE | 2018-07-22 13:34 | PC.NURSE ---
Assisted patient to commode to attempt to obtain clean catch urine specimen. Pt unable to urinate at this time. Assisted back into bed.
--- NOTE | 2018-07-22 13:42 | ED.WEAKNESS ---
HPI - Weakness General Chief complaint: Weakness Stated complaint: Near Syncope Time Seen by Provider: 07/22/18 12:23 Source: patient and EMS Mode of arrival: EMS Limitations: altered mental status History of Present Illness HPI Narrative: Pleasantly confused 82-year-old female presents by EMS for an episode of near-syncope while in the shower earlier today. This was witnessed by multiple family members, she vomited once. She has been otherwise well and denies any chest pain or shortness of breath. She has no stroke-like symptoms such as focal neurologic findings or numbness or tingling. Family states she has presented like this on multiple times in the past and was given diagnosis of urinary tract infection. Related Data Home Medications Medication Instructions Recorded Confirmed aspirin 81 mg PO QDAY #0 11/21/17 05/04/18 Previous Rx's Medication Instructions Recorded donepezil 5 mg PO HS #90 tab 01/04/18 levothyroxine [Synthroid] 75 mcg PO QAM #90 tab 01/04/18 simvastatin 40 mg PO HS #90 tab 01/04/18 venlafaxine [Effexor XR] 150 mg PO QDAY #90 cap 01/04/18 sulfamethoxazole 400 1 tab PO BID #28 tab 06/13/18 mg-trimethoprim 80 mg tablet Allergies Allergy/AdvReac Type Severity Reaction Status Date / Time pneumococcal vaccine Allergy Mild CELLULITIS Verified 07/22/18 12:38 Review of Systems Review of Systems All systems reviewed & are unremarkable except as noted in HPI and below Constitutional Denies chills, Denies fever(s), Denies lethargy and Denies weakness Eyes Denies change in vision, Denies eye discharge, Denies irritation and Denies loss of vision ENT Ears, Nose, Mouth, and Throat: Denies change in voice, Denies neck pain and Denies sore throat Cardiovascular Denies chest pain, Denies irregular heart rhythm, Denies lightheadedness, Denies palpitations, Denies dyspnea, Denies dyspnea on exertion and Denies orthopnea Comments: Near syncope Respiratory Denies cough, Denies dyspnea, Denies dyspnea on exertion and Denies wheezing Gastrointestinal Gastrointestinal: Reports as per HPI, Denies abdominal pain, Denies change in bowel habits, Denies diarrhea, Reports nausea and Reports vomiting Genitourinary Denies hematuria, Denies flank pain, Denies urinary incontinence and Denies urinary urgency Musculoskeletal Denies neck pain Integumentary/Breasts Denies pruritus, Denies erythema, Denies rash and Denies wounds Neurologic Denies confusion, Denies loss of vision and Denies weakness Psychiatric Denies anxiety, Denies confusion, Denies depression, Denies homicidal ideation and Denies suicidal ideation Endocrine Denies palpitations Hematologic/Lymphatic Denies easy bruising Allergic/Immunologic Denies wheezing PFSH Family History Sister Lung cancer, Onset Age: 85 Social History Smoking Status: Former smoker alcohol intake: never substance use type: does not use Exam Narrative Exam Narrative: GENERAL: Pleasant 82-year-old female in no obvious distress HEAD: Atraumatic. Normocephalic. No temporal or scalp tenderness. EYES: Pupils equal round and reactive. Extraocular motions intact. No scleral icterus. No injection or drainage. ENT: Dry mucous membranes.Nose without bleeding, purulent drainage or septal hematoma. Throat without erythema, tonsillar hypertrophy or exudate. Uvula midline. Airway patent. NECK: Trachea midline. No JVD or lymphadenopathy. Supple, nontender, no meningeal signs. CARDIOVASCULAR: Regular rate and rhythm without murmurs, gallops, or rubs. RESPIRATORY: Clear to auscultation. Breath sounds equal bilaterally. No wheezes, rales, or rhonchi. GASTROINTESTINAL: Abdomen soft, non-tender, nondistended. No hepato-splenomegaly, or palpable masses. No guarding. EXTREMITIES: No clubbing, cyanosis, or edema. No joint tenderness, effusion, or edema noted. BACK: Nontender without deformity or crepitance. No flank tenderness. NEURO: AOx3. SKIN: No rash or erythema. Tenting Initial Vital Signs Initial Vital Signs: Vital Signs Temperature 97.7 F 07/22/18 12:28 Pulse Rate 78 07/22/18 12:28 Respiratory Rate 19 07/22/18 12:28 Blood Pressure 131/49 L 07/22/18 12:28 Pulse Oximetry 95 07/22/18 12:28 Course Orders Ordered: ED Orders 07/22/18 12:26 CT head/brain wo con Stat XR chest 1V Stat EKG-12 Lead Stat 07/22/18 12:40 B Type Natriuretic Peptide Stat Complete Blood Count AUTO DIFF Stat Comprehensive Metabolic Panel Stat Lipase Stat Prolactin Stat Troponin & CK Cardiac Panel Stat 07/22/18 16:24 Urinalysis and Microscopic Stat Discontinued Medications Sodium Chloride (Normal Saline 0.9%) 1,000 mls @ 150 mls/hr IV CONT BOB Last Infusion: 07/22/18 16:26 Dose: 0 mls/hr Admin: 07/22/18 13:11 Dose: 150 mls/hr Vital Signs - 8 hr 07/22/18 12:28 07/22/18 12:35 07/22/18 13:30 Temperature 97.7 F 98.2 F Pulse Rate 78 76 69 Pulse Rate [Orthostatic Lying] Pulse Rate [Orthostatic Sitting] Pulse Rate [Orthostatic Standing] Respiratory Rate 19 20 13 Blood Pressure 131/49 L Blood Pressure [Orthostatic Lying] Blood Pressure [Orthostatic Sitting] Blood Pressure [Orthostatic Standing] Blood Pressure [Right Arm] 131/39 L 148/56 H Pulse Oximetry 95 97 99 07/22/18 14:00 07/22/18 15:04 07/22/18 16:37 Temperature Pulse Rate 77 84 Pulse Rate [Orthostatic Lying] 82 Pulse Rate [Orthostatic Sitting] 85 Pulse Rate [Orthostatic Standing] 94 H Respiratory Rate 16 14 Blood Pressure Blood Pressure [Orthostatic Lying] 118/60 Blood Pressure [Orthostatic Sitting] 111/84 Blood Pressure [Orthostatic Standing] 109/67 Blood Pressure [Right Arm] 121/65 135/73 Pulse Oximetry 97 85 L 97 MDM - Weakness Lab Data Result diagrams: 07/22/18 12:40 07/22/18 12:40 Lab Results 07/22/18 07/22/18 07/22/18 Range/Units 12:40 12:40 12:40 WBC 7.7 (4.5-11.0) X10^3/uL RBC 4.48 (4.0-5.2) X10^6/uL Hgb 13.3 (12.0-16.0) g/dL Hct 40.5 (36-46) % MCV 90.5 (80-100) fL MCH 29.8 (26-34) PG MCHC 32.9 (30-36) % RDW 13.5 (11.6-14.8) % Plt Count 252 (150-400) X10^3/uL Neut % (Auto) 76.5 H (50-75) % Lymph % (Auto) 15.5 L (25-40) % [place] % (Auto) 5.9 (3-14) % Eos % (Auto) 1.4 L (2-4) % Baso % (Auto) 0.7 (0-2) % Neut # (Auto) 5900 (5175-5447) /uL Sodium 145 (137-145) mmol/L Potassium 4.1 (3.4-5.1) mmol/L Chloride 107 (98-107) mmol/L Carbon Dioxide 27 (22-32) mmol/L BUN 21 H (7-17) mg/dL Creatinine 1.00 (0.52-1.04) mg/dL Estimated GFR 53.1 L (>60) mL/min BUN/Creatinine Ratio 21.0 (6-22) Glucose 117 H (80-110) mg/dL Calcium 8.7 (8.4-10.2) mg/dL Total Bilirubin 0.5 (0.2-1.3) mg/dL AST 17 (14-36) IU/L ALT 25 (9-52) IU/L Alkaline Phosphatase 64 (38-126) U/L Total Creatine Kinase 22 L (30-135) U/L CK-MB (CK-2) TNP CK-MB (CK-2) Rel Index TNP Troponin I < 0.012 (0.01-0.034) ng/mL B-Natriuretic Peptide < 100.0 (<100) Total Protein 6.6 (6.3-8.2) g/dL Albumin 3.9 (3.5-5.0) g/dL Globulin 2.7 (1.7-4.1) g/dL Albumin/Globulin Ratio 1.4 (1.0-2.8) Lipase 158 (23-300) U/L Prolactin 24.0 H (3.0-18.6) ng/mL Urine Color Urine Appearance Urine pH (4.5-8.0) Ur Specific [place] (1.000-1.035) Urine Protein (Negative) Urine Glucose (UA) (Normal) g/dL Urine Ketones (NEGATIVE) Urine Occult Blood (Negative) Urine Nitrate (Negative) Urine Bilirubin (NEGATIVE) Urine Urobilinogen (0.2) E.U./dL Ur Leukocyte Esterase (NEGATIVE) Urine RBC (0-5/HPF) Urine WBC (0-5/HPF) Ur Squamous Epith Cells Urine Bacteria (None) 07/22/18 Range/Units 16:24 WBC (4.5-11.0) X10^3/uL RBC (4.0-5.2) X10^6/uL Hgb (12.0-16.0) g/dL Hct (36-46) % MCV (80-100) fL MCH (26-34) PG MCHC (30-36) % RDW (11.6-14.8) % Plt Count (150-400) X10^3/uL Neut % (Auto) (50-75) % Lymph % (Auto) (25-40) % [place] % (Auto) (3-14) % Eos % (Auto) (2-4) % Baso % (Auto) (0-2) % Neut # (Auto) (0170-4634) /uL Sodium (137-145) mmol/L Potassium (3.4-5.1) mmol/L Chloride (98-107) mmol/L Carbon Dioxide (22-32) mmol/L BUN (7-17) mg/dL Creatinine (0.52-1.04) mg/dL Estimated GFR (>60) mL/min BUN/Creatinine Ratio (6-22) Glucose (80-110) mg/dL Calcium (8.4-10.2) mg/dL Total Bilirubin (0.2-1.3) mg/dL AST (14-36) IU/L ALT (9-52) IU/L Alkaline Phosphatase (38-126) U/L Total Creatine Kinase (30-135) U/L CK-MB (CK-2) CK-MB (CK-2) Rel Index Troponin I (0.01-0.034) ng/mL B-Natriuretic Peptide (<100) Total Protein (6.3-8.2) g/dL Albumin (3.5-5.0) g/dL Globulin (1.7-4.1) g/dL Albumin/Globulin Ratio (1.0-2.8) Lipase (23-300) U/L Prolactin (3.0-18.6) ng/mL Urine Color Yellow Urine Appearance Clear Urine pH 5.0 (4.5-8.0) Ur Specific [place] 1.010 (1.000-1.035) Urine Protein Negative (Negative) Urine Glucose (UA) Negative (Normal) g/dL Urine Ketones Negative (NEGATIVE) Urine Occult Blood Trace-intact (Negative) Urine Nitrate Negative (Negative) Urine Bilirubin Negative (NEGATIVE) Urine Urobilinogen 0.2 (0.2) E.U./dL Ur Leukocyte Esterase Negative (NEGATIVE) Urine RBC None seen (0-5/HPF) Urine WBC 1-5/hpf (0-5/HPF) Ur Squamous Epith Cells 5-10 /hpf H Urine Bacteria None seen (None) MDM Narrative Medical decision making narrative: Patient had hypotension on arrival of EMS. She was orthostatic on their exam and seemed to improve significantly with IV fluids. At no point did she have chest pain or palpitations. She had no focal neurologic findings or seizure-like activity. She was ambulatory in the emergency department on multiple occasions and not clinically orthostatic Discharge Plan Departure Patient Disposition: Home Clinical Impression: Near syncope Discharge Date/Time: 07/22/18 17:29 Interventions: ED Discharge Assessment Last Done: 07/22/18 17:28 Instructions: DI for Syncope in Adults (Fainting) Activity Restrictions/Additional Instructions: *You have been diagnosed with [ near syncope, possible mild dehydration ] *What to do: *Continue to take medications as directed *Follow up with your primary care provider in 2-3 days, call for an appointment. Let them know you were seen in the Emergency Department and that we ask that you be seen in follow up *Return to ER if you should have any new, worsening or concerning symptoms Prescriptions: No Action aspirin 81 MG tablet,delayed release (DR/EC) 81 mg PO QDAY Qty: 0 RF: 0 donepezil 5 MG tablet 5 mg PO HS Qty: 90 RF: 3 venlafaxine [Effexor XR] 150 MG capsule,extended release 24hr 150 mg PO QDAY Qty: 90 RF: 3 simvastatin 40 MG tablet 40 mg PO HS Qty: 90 RF: 3 levothyroxine [Synthroid] 75 MCG tablet 75 mcg PO QAM Qty: 90 RF: 3 sulfamethoxazole-trimethoprim 400-80 mg tablet 1 tab PO BID Qty: 28 RF: 0
[2018-07-22 14:00] VITALS: BP 121/65; PULSE 77; RESP 16; O2SAT 97
[2018-07-22 15:04] VITALS: BP 109/67; BP 111/84; BP 118/60; PULSE 82; PULSE 85; PULSE 94; O2SAT 85
[2018-07-22 16:30] LABS: Bacteria Urine None Seen; RBC Urine None Seen (0-5/HPF)
[2018-07-22 16:37] VITALS: BP 135/73; PULSE 84; RESP 14; O2SAT 97
[2018-07-22 16:45] LABS: Appearance Urine UA CLEAR; Bilirubin Urine UA NEGATIVE (NEGATIVE); Color Urine UA YELLOW; Glucose Urine UA NEGATIVE (Normal); Ketones Urine UA NEGATIVE (NEGATIVE); Leukocyte Esterase Urine UA NEGATIVE (NEGATIVE); Nitrite Urine UA NEGATIVE (Negative); Occult Blood Urine UA TRACE-INTACT (Negative); Protein Urine UA NEGATIVE (Negative); Urobilinogen Urine UA 0.2 E.U./dL (0.2)
[2018-07-22 16:48] LABS: Squamous Epithelial Cell Urine 5-10 /HPF; WBC Urine 1-5/HPF (0-5/HPF)
== END 2018-07-22 17:29 | disposition home or self-care (01) ==
PROVIDERS: Emergency Provider Emergency Medicine; Family Provider Physician Assistant; PCP Physician Assistant
DX: R55 Syncope and collapse (principal)
CPT/HCPCS: 36415; 70450; 71045; 80053; 81001; 82550; 83690; 83880; 84146; 84484; 85025; 93005; 93010; 96360; 96361; 99285